=== PATIENT | female | born 1980 | race Caucasian/White ===

== ENCOUNTER 2023-07-30 21:55 | Emergency (ER) | payer SELFPAY ==
[2023-07-30 21:57] VITALS: BP 114/74
--- NOTE | 2023-07-30 22:15 | ED.GENMED ---
History of Present Illness
General
Chief Complaint: Blood and Body Fluid Exposure
Source: patient
Exam Limitations: none
Time Seen by Provider: 07/30/23 22:08
Travel History
Have you had any contact with someone who has COVID-19?: No
Do you have any symptoms of coronavirus? Fever > 100 degrees, chills, cough, shortness of breath, sore throat, loss of taste or smell, muscle aches, or headache?: No
History of Present Illness
History of Present Illness:
This is a 42 year old female that comes in with c/o getting blood near her eye. States that she was doing a blood sugar check and some blood splashed in her right eye at the corner. States that this did not get into her eye and that she rinsed her
eye out several times before coming down to the ER. Denies any complaints.
Past History
Past History
ED Past Medical History: None; Negative Asthma, HTN, Hypercholesterolemia or NIDDM
ED Past Surgical History:
Social History
Tobacco: Non-smoker
Alcohol: Occasional
Personal:
Living: with family
Employment: Employed
Review of Systems
Review of Systems
All Other Systems: ROS reviewed and negative except as documented in HPI and ROS
Constitutional: Reports no symptoms
EENT: Reports other (Blood slashed in the corner of the eye but did not get into her eye)
Respiratory: Reports no symptoms
ABD/GI: Reports no symptoms
: Reports no symptoms
Musculoskeletal: Reports no symptoms
Skin: Reports no symptoms
Neurological: Reports no symptoms
Psychiatric: Reports no symptoms
Phy Exam
General Physical Exam
General Presentation: well appearing and no apparent distress
General age: appears stated age
General Skin: warm and dry
General Habitus: normal
General Mental: alert
General Hydration: appears well hydrated
ENT Exam
ENT Exam: TM's normal, pharynx normal and neck supple
Eye Exam
Eye Exam: EOMI
Musculoskeletal Exam
Musculoskeletal Exam: full ROM
Skin Exam
Skin Exam: normal color, warm/dry, no rash and no petechia
Psychiatric Exam
Psychiatric Exam: normal mood/affect
Course
Orders/Labs/Results
Orders:
Orders
07/30/23 22:12
Pt has had a significant HIV exposure? Routine
HIV Exposure is significant?: No
Complete Blood Count/No Diff Urgent
Comprehensive Metabolic Panel Urgent
HCG, Serum Qualitative Screen Urgent
HIV Combo Urgent
Hepatitis B Surface Antibody Urgent
Hepatitis B Surface Antigen Urgent
Hepatitis C Antibody Urgent
07/30/23 22:13
Test Result ONCE
Vital Signs
Initial and Last Documented VS:
Initial Vital Signs
Temp Pulse Resp BP Pulse Ox
97.9 F 80 16 114/74 98
07/30/23 21:57 07/30/23 21:57 07/30/23 21:57 07/30/23 21:57 07/30/23 21:57
Last Documented Vital Signs
Temp Pulse Resp BP Pulse Ox
97.9 F 80 16 114/74 98
07/30/23 21:57 07/30/23 21:57 07/30/23 21:57 07/30/23 21:57 07/30/23 21:57
MDM/Problems Addressed
Differential Diagnosis Includes:
Blood body fluid exposure
MDM/Problems Addressed:
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 Sates that she was doing a blood sugar AccuCheck and some blood splashed to the corner of her eye but did not get into her eye.
Will get blood work needed for blood body fluid exposure. Explained to patient that this is very low risk and do not feel that she needs any prophylactic medication. Will discharge home.
Chronic conditions affecting care:
NA
Acute Exacerbation and/or Progression of Chronic Illness:
NA
*Pulse Oximetry
Patient hypoxic: no
*EKG
Interpreted by ED Provider?: NA
Rate: EKG- N/A
*Flat Sorting Machine Clerk Interpretation
Rate: Flat Sorting Machine Clerk- N/A
*Critical Care Note
Total Time (30-74mins, 75-104mins- exclusive of procedures): Not Applicable
ED Attending Note
-
Portions of this chart may have been created with voice recognition software.� Occasional wrong word or��sound alike� substitutions may have occurred due to the inherent limitations of voice recognition software.
Discharge Plan
Departure
Patient Disposition: Home (Routine Discharge)
Date of Disposition: 07/30/23
Time of Disposition: 22:22
Patient with high blood pressure during this ER visit?: No
Condition: Good
Covid-19: Not Applicable
Discharge Problem:
Exposure to blood or body fluid
Instructions: Blood or body fluid exposure
Stand Alone Forms: Bl/Fluid Consent/Declination, Blood Body/Fluid Exposure
Activity Restrictions/Additional Instructions:
As discussed, your blood work has been drawn. Patient will also need to have testing done. This is very low risk and would not advise any prophylactic treatment. Follow up in occupational health. IF YOU HAVE ANY OTHER CONCERNS PLEASE RETURN TO THE
EMERGENCY ROOM.
Interventions
Interventions:
*Risk Screen - Suicide Last Done: 07/30/23 21:57
*Neglect/Abuse Screening Last Done: 07/30/23 21:57
Discharge Date and Time
Print Language: ROMANIAN
[2023-07-30 22:33] LABS: Hematocrit 37.2 % (37.0-47.0); Hemoglobin 13.3 g/dL (12.0-16.0); Mean Corp Hgb Conc. 35.8 g/dL (33.0-37.0); Mean Corpuscular Hgb 31.6 pg (27.0-31.0); Mean Corpuscular Volume 88.4 fL (81.0-99.0); Platelet Count 306 10^3/uL (130-400); Red Blood Cell Count 4.21 10^6/uL (4.20-5.40); Red Cell Dist. Width 12.9 % (11.5-14.5); White Blood Cell Count 7.4 10^3/uL (4.8-10.8)
[2023-07-30 22:43] LABS: HCG, Serum Qualitative Screen Negative
[2023-07-30 22:47] LABS: ALT (SGPT) 14 U/L (0-35); AST (SGOT) 22 U/L (14-36); Albumin 4.6 g/dl (3.5-5.0); Alkaline Phosphatase 44 U/L (38-126); Blood Urea Nitrogen 15 mg/dl (7-17); Calcium 9.4 mg/dl (8.4-10.2); Carbon Dioxide 25 mmol/L (22-30); Chloride 103 mmol/L (98-107); Glucose 131 mg/dl (70-99); Potassium 3.4 mmol/L (3.5-5.1); Sodium 137 mmol/L (135-145); Total Bilirubin 0.6 mg/dl (0.2-1.3); Total Protein 7.4 g/dl (6.3-8.2); eGFR > 60.00
[2023-07-30 23:05] LABS: Glucose - Point of Care 120 mg/dl (70-99)
[2023-07-31 01:50] LABS: Hepatitis B Surface Antigen Negative (Negative)
[2023-07-31 02:08] LABS: Hepatitis B Surface Antibody Negative; Hepatitis C Antibody Negative (Negative)
[2023-07-31 04:38] LABS: HIV Combo Negative (Negative)
== END 2023-07-30 23:32 | disposition home or self-care (01) ==
LOC: EMR 21:55
PROVIDERS: Clinical Nurse Specialist Family Health; EMERGENCY PHYSICIAN Emergency Medicine
DX: Z77.21 Contact with and (suspected) exposure to potentially hazardous body fluids (principal); Y99.0 Civilian activity done for income or pay
CPT/HCPCS: 99283; 80053; 82962; 84703; 85027; 86706; 86803; 87340; 87389